=== PATIENT | male | born 1970 | race Two or more races ===

== ENCOUNTER 2019-10-31 08:33 | Observation (INO) | payer SELFPAY ==
[2019-10-31] VITALS (25 sets, daily range): BP systolic 114–163; BP diastolic 68–105; PULSE 54–72; RESP 13–22; TEMP 36.5–36.9; O2SAT 93–99; BMI 36.6; BMI 39.1
--- NOTE | 2019-10-31 | IR_ITS ---
APPROVED REPORT Patient Location: Inpatient PROCEDURES Left heart catheterization Left ventriculogram Selective coronary angiogram INDICATION Acute coronary syndrome, Dynamic EKG changes Informed consent was obtained prior to the procedure. COMPLICATIONS NONE Estimated Blood Loss: LESS THAN 10 ML TECHNIQUE One percent lidocaine used to anesthetize the right anterior aspect of the wrist. The right radial artery was accessed via the Seldinger technique. A 6 Austrian sheath was placed in the right radial artery. 2.5 mg of verapamil, 800 mcg of nitroglycerin, 1mg Lidocaine and 5000 U Heparin were given through the arterial sheath. The trap catheter was also used to perform left heart catheterization, left ventriculogram and selective coronary angiogram. At the end of the procedure the sheath was removed good hemostasis was achieved using Traclet band, patient was transferred to the postop holding area in stable condition. ANGIOGRAPHIC RESULTS The left main artery Normal The left anterior descending artery Is proximally normal and has mid vessel 10 to 20% stenoses with very distal 30 to 40% stenoses The circumflex artery Is a large dominant vessel and has a 30% stenosis in the large terminal obtuse marginal artery The right coronary artery Is a small nondominant vessel and has 50% stenoses and a 1 mm distal segment The DESAI ventriculogram reveals Normal 65% The left ventricular end-diastolic pressure 20 mmHg IMPRESSION Mild to moderate [id number] coronary disease as described above Normal ejection fraction Elevated LVEDP PLAN 1. Standard therapy for ischemic heart disease 2. Aspirin 81 daily 3. Statin therapy if possible 4. Medical management Electronically signed by : Marlon Daley, 10/31/2019 12:51:43
--- NOTE | 2019-10-31 08:33 | ECG_ITS ---
APPROVED REPORT Exam: Resting ECG HR:71 bpm ECG Measurements Heart Rate 71 AXES NV 164 P 56 QRSd 94 QRS 69 QT 386 T 8 QTc 419 <Conclusion> Normal sinus rhythm Nonspecific T wave abnormality Abnormal ECG Electronically signed by : Cb Valencia, 11/04/2019 17:16:20
--- NOTE | 2019-10-31 08:35 | XR_ITS ---
PROCEDURE: XR CHEST 2V CLINICAL HISTORY: Chest Pain COMPARISON: No exams were available for comparison FINDINGS: The cardiomediastinal silhouette and pulmonary vascularity are within normal limits. The lungs are clear without infiltrates, suspicious nodules, or pleural effusions. No acute bony abnormalities. IMPRESSION: No acute findings. Dictated by: Florentino Mcdonald MD 10/31/2019 09:01 Electronically signed by Florentino Mcdonald MD in [place] 10/31/2019 09:01
--- NOTE | 2019-10-31 08:42 | PC.NURSE ---
Pt to rad
--- NOTE | 2019-10-31 08:43 | PC.NURSE ---
MD at bedside upon pt's arrival to ED.
--- NOTE | 2019-10-31 08:50 | PC.NURSE ---
Pt returned from rad.
--- NOTE | 2019-10-31 09:01 | PC.NURSE ---
Reassessed pt pain after administration of GI contact, pt expressed his pain is better
--- NOTE | 2019-10-31 09:03 | PC.NURSE ---
Pt speaks limited amount of luxembourgish, family member at bedside translating for pt, refused official hospital head orthopedic team physician
--- NOTE | 2019-10-31 09:17 | PC.NURSE ---
Called lab for update on lab results
[2019-10-31 09:24] LABS: Basophils # 0.1 K/mm3 (0-0.2); Eosinophils # 0.4 K/mm3 (0.0-0.4); Eosinophils % 6.7 % (0.1-12.0); Hematocrit 49.2 % (42.0-52.0); Hemoglobin 16.8 g/dL (14.1-18.0); Lymphocytes # 2.4 K/mm3 (0.7-4.5); Lymphocytes % 37.3 % (10-50); Mean Corpuscular HGB Conc 34.2 g/dL (31.8-35.4); Mean Corpuscular Hemoglobin 30.2 pg (27.0-31.2); Mean Corpuscular Volume 88.3 fl (80-94); Mean Platelet Volume 8.3 fl (7.4-10.4); Monocytes # 0.5 K/mm3 (0.1-1.0); Neutrophils # 3.1 K/mm3 (1.8-7.8); Platelet Count 199 K/mm3 (142-424); Red Blood Count 5.58 M/mm3 (4.60-6.20); Red Cell Distribution Width 14.2 % (11.5-17.5); White Blood Count 6.4 K/mm3 (4.8-10.8)
[2019-10-31 09:30] LABS: Chloride 105 mmol/L (98-107); Sodium 137 mmol/L (136-145)
[2019-10-31 09:32] LABS: Amylase 93 U/L (30-110); Blood Urea Nitrogen 12 mg/dl (9-20); Creatinine Clearance Estimated 186 mL/min (50-200); Estimated Glomerular Filt Rate 121 ml/min (>60); GFR (African American) 147 ML/MIN (>60)
[2019-10-31 09:33] LABS: Carbon Dioxide 29 mmol/L (22.0-30.0); Lipase 177 U/L (23-300)
[2019-10-31 09:39] LABS: Calcium 9.1 mg/dl (8.4-10.2)
[2019-10-31 09:46] LABS: Troponin I < 0.01 ng/ml (0.00-0.034)
--- NOTE | 2019-10-31 09:51 | PC.NURSE ---
Rhythm change noted to hall monitor, notified stated to get repeat EKG and draw another troponin for this time.
--- NOTE | 2019-10-31 09:53 | ECG_ITS ---
APPROVED REPORT Exam: Resting ECG HR:55 bpm ECG Measurements Heart Rate 55 AXES NE 174 P 25 QRSd 104 QRS 49 QT 418 T -52 QTc 399 <Conclusion> Sinus bradycardia Possible Inferior infarct, age undetermined T wave abnormality, consider lateral ischemia Abnormal ECG Electronically signed by : Cb Valencia, 11/04/2019 17:16:12
[2019-10-31 09:55] LABS: Glucose 114 mg/dl (74-100)
--- NOTE | 2019-10-31 09:57 | PC.NURSE ---
Pt states his pain is at a 4, MD notified
--- NOTE | 2019-10-31 09:58 | PC.NURSE ---
Lab aware of new orders.
--- NOTE | 2019-10-31 10:17 | HMH.EDCP ---
ED Disposition Clinical Impression: Chest pain Disposition: Admitted as Observation Condition on Discharge: Good - Critical Care Critical Care Time: No Attestation: On 10/31/19, the high probability of a clinically significant, sudden or life threatening deterioration of the following system(s) required my full and direct attention, intervention and personal management. The time I documented below is in addition to time spent performing reported procedures but includes the following listed in this critical care notation. Medical Decision Making - Medical Records Medical records reviewed: Yes: I reviewed the patient's medical records. - Gilberto Inquiry Pt receiving controlled substance: No Vital Signs: 10/31/19 08:34 10/31/19 09:05 10/31/19 09:36 Temperature 98.5 F Temperature Source Oral Pulse Rate [Right] 70 64 57 L Respiratory Rate 22 13 Blood Pressure [Right Arm] 145/95 H 151/95 H 130/75 Blood Pressure Mean [Right Arm] 111 113 93 Blood Pressure Source [Right Arm] Automatic Cuff Blood Pressure Position [Right Arm] Sitting 02 Sat by Pulse Oximetry 98 96 93 L Oxygen Delivery Method Room Air 10/31/19 09:58 10/31/19 10:02 10/31/19 10:55 Temperature Temperature Source Pulse Rate [Right] 64 61 61 Respiratory Rate 20 Blood Pressure [Right Arm] 131/90 124/68 149/98 H Blood Pressure Mean [Right Arm] 103 86 115 Blood Pressure Source [Right Arm] Automatic Cuff Automatic Cuff Blood Pressure Position [Right Arm] Sitting Sitting 02 Sat by Pulse Oximetry 93 L 94 L 97 Oxygen Delivery Method Room Air Room Air Room Air 10/31/19 11:07 Temperature Temperature Source Pulse Rate [Right] 66 Respiratory Rate Blood Pressure [Right Arm] 163/105 H Blood Pressure Mean [Right Arm] 124 Blood Pressure Source [Right Arm] Automatic Cuff Blood Pressure Position [Right Arm] Sitting 02 Sat by Pulse Oximetry 97 Oxygen Delivery Method Room Air - Lab Data Lab results reviewed: Yes: I reviewed the patient's lab results. Lab Results 10/31/19 08:35: WBC 6.4, RBC 5.58, Hgb 16.8, Hct 49.2, MCV 88.3, MCH 30.2, MCHC 34.2, RDW 14.2, Plt Count 199, MPV 8.3, Neut % (Auto) 48.0, Lymph % (Auto) 37.3, [place] % (Auto) 7.0, Eos % (Auto) 6.7, Baso % (Auto) 1.0, Neut # (Auto) 3.1, Lymph # (Auto) 2.4, [place] # (Auto) 0.5, Eos # (Auto) 0.4, Baso # (Auto) 0.1 10/31/19 08:35: Sodium 137, Potassium 4.0, Chloride 105, Carbon Dioxide 29, Anion Gap 7.0, BUN 12, Creatinine 0.70, Estimated Creat Clear 186, Estimated GFR 121, Est GFR ( Amer) 147, Glucose 114 H, Calcium 9.1, Troponin I < 0.01, Amylase 93 10/31/19 08:35: Lipase 177 10/31/19 09:56: Troponin I < 0.01 Result diagrams: 10/31/19 08:35 10/31/19 08:35 Orders (Tests/Meds): ED MEDICATIONS Generic Name Dose Route Start Last Admin Trade Name Freq PRN Reason Stop Dose Admin Fentanyl Citrate 25 mcg 10/31/19 10:46 Fentanyl 250mcg/5ml Vial IV 11/01/19 10:46 Q3MINP PRN Moderate to Severe Pain Fentanyl Citrate 50 mcg 10/31/19 10:46 Fentanyl 250mcg/5ml Vial IV 11/01/19 10:46 Q3MINP PRN Moderate to Severe Pain Flumazenil 0.2 mg 10/31/19 10:46 Romazicon 0.1mg/Ml 5ml Vial IV 10/31/19 23:00 NEEDED PRN Sedation Nitroglycerin/Dextrose 250 mls @ 1.5 mls/hr 10/31/19 10:45 10/31/19 10:48 Nitroglycerin 50mg/250ml D5w IV 11/30/19 10:44 5 mcg/min .Q24H JAMIL 1.5 mls/hr Administration Protocol 5 MCG/MIN Midazolam HCl 1 mg 10/31/19 10:46 Midazolam 2mg/2ml Vial IV 11/01/19 10:46 Q3MINP PRN Sedation Midazolam HCl 1 mg 10/31/19 10:46 Midazolam 1mg/Ml 5ml Vial IV 11/01/19 10:46 Q3MINP PRN Sedation Naloxone HCl 0.4 mg 10/31/19 10:46 Narcan 0.4mg/Ml Vial IV 11/01/19 10:46 Q5MINP PRN Decreased Respirations Discontinued Medications Generic Name Dose Route Start Last Admin Trade Name Freq PRN Reason Stop Dose Admin Aspirin 324 mg 10/31/19 08:39
--- NOTE | 2019-10-31 10:19 | PC.NURSE ---
Demetri Harris at bedside
[2019-10-31 10:28] LABS: Troponin I < 0.01 ng/ml (0.00-0.034)
--- NOTE | 2019-10-31 10:31 | HMH.CNCARD ---
History of Present Illness Consult date: 10/31/19 Requesting physician: Duane Castillo Consult reason: chest pain Chief complaint: chest pain Additional Medical History:: 1. Hypertension 2. Questionable family history of heart disease 3. History of reflux History of present illness: A pleasant 48-year-old gentleman presents the ED with acute onset of left-sided chest pain. Patient is a male and does not speak very good U[place]ayan he does have an analytics specialist in the room. Patient states that this pain started about 1 hour prior to arrival here in the ED he is classify the pain as a sharp and pressure-like sensation on the left sternum he also stated that radiates to the neck and jaw and also to the back. He states that presently the pain is better than it did when it first happened. He originally rated his pain when it first happened at 8 out of 10 presently it is 3 out of 10. Patient states he has hypertension and also hyperlipidemia. No known previous cardiac events. Patient states that activity makes his pain worse and resting makes this pain better.Patient denies any recent cough or shortness of breath, patient denies any sore throat or headache, patient denies any loss of taste or smell, patient denies any malaise or fatigue, patient denies any abdominal pain nausea vomiting or diarrhea. After about 60 minutes here in the ED patient did have another episode of chest pain and also had monitor changes in his heart rhythm. EKG at that time was performed immediately and also a new set of cardiac markers were drawn as well. I also consulted cardiology and Demetri Harris is here examining the patient. The above per Dr. Castillo Patient confirmed events as noted above. Through the float tender patient relates complete relief of chest pain after his GI cocktail. He was given Zofran due to some nausea. Thereafter his pain did recur at which time as noted above the second set of enzymes and second EKG were obtained which did show evidence of ST depression laterally. Patient was reportedly having some chest discomfort prior to my arrival but at this time the patient denies chest pain. Patient is a non-smoker and nondiabetic. He does have hypertension. No prior history of hyperlipidemia. There is a questionable history of heart disease in his aunt who was a diabetic. Patient does relate an episode of chest discomfort about 10 years ago for which he was seen at [facility] but from what I can tell there were no follow-up procedures performed. [facility] History *Have you ever received a pneumonia vaccine?: No *Have you received a flu vaccine this season?: No - *Social History Alcohol Intake: never *Occupational Status:: employed *Travel in the last 8 weeks: None Family Hx:: Coronary Artery Disease Meds Allergies Allergy/AdvReac Type Severity Reaction Status Date / Time No Known Allergies Allergy Verified 10/31/19 08:39 Review of Systems - Review of Systems Review of systems:: pertinent systems reviewed and negative unless documented below - *Cardiovascular Reports chest pain, Reports shortness of breath with activity - *Respiratory Reports shortness of breath with activity - *Gastrointestinal Reports nausea, Denies vomiting - *Genitourinary Denies blood in urine - *Musculoskeletal Denies joint pain, Denies back pain - *Neurologic Denies headache(s), Denies fainting Exam Vital signs and Labs for Last 24 Hours: Temp Pulse Resp BP Pulse Ox 98.5 F 61 20 124/68 94 L 10/31/19 08:34 10/31/19 10:02 10/31/19 09:58 10/31/19 10:02 10/31/19 10:02 Laboratory Results - last 24 hr 10/31/19 08:35: WBC 6.4, RBC 5.58, Hgb 16.8, Hct 49.2, MCV 88.3, MCH 30.2, MCHC 34.2, RDW 14.2, Plt Count 199, MPV 8.3, Neut % (Auto) 48.0, Lymph % (Auto) 37.3, [place] % (Auto) 7.0, Eos % (Auto) 6.7, Baso % (Auto) 1.0, Neut # (Auto) 3.1, Lymph # (Auto) 2.4, [place] # (Auto) 0.5, Eos # (Auto) 0.4, Baso # (Auto) 0.1 10/31/19 08:35: S
--- NOTE | 2019-10-31 10:33 | PC.NURSE ---
Per Demetri Harris pt will be going to hot plate plywood press laborer shortly. Explained to pt through his family member that he will be prepped and shaved for his procedure.
--- NOTE | 2019-10-31 10:39 | PC.NURSE ---
pt up to restroom
--- NOTE | 2019-10-31 10:47 | PC.NURSE ---
Pt to go to pathology laboratory aide but will be admitted afterwards. Pt to be admitted to room 217
--- NOTE | 2019-10-31 10:55 | PC.NURSE ---
A Josep RN using Ipad furnace clerk at this time to explain procedure and to get consent for cath
--- NOTE | 2019-10-31 11:16 | PC.NURSE ---
Pt states his pain is at a 6, nitro gtt turned up to 10
--- NOTE | 2019-10-31 11:22 | PC.NURSE ---
Spoke with Helen via the seam steamer ipad with NAOMI Cardenas at bedside during obtaining consent. Pt consent obtained for cardiac cath with possible cardiac interventions.
--- NOTE | 2019-10-31 11:30 | PC.NURSE ---
Cathlab here to transport pt, report given to Mary SALGADO from cathlab.
--- NOTE | 2019-10-31 13:52 | HMH.PHAVTE ---
[facility] Pharmacy VTE Monitoring - Patient Demographics Admission date: 10/31/19 Report Date: 10/31/19 Time: 13:52 Allergies/Adverse Reactions: Patient Allergies No Known Allergies Allergy (Verified 10/31/19 08:39) Height: 1.65 m Weight: 106.594 kg Patient Problems: Current Active Problems Chest pain (Acute) Acute coronary syndrome (Acute) History of hypertension (Acute) Obesity (Acute) - VTE Risk Labs: VTE Related Lab Results Hgb 16.8 g/dL (14.1-18.0) 10/31/19 08:35 Hct 49.2 % (42.0-52.0) 10/31/19 08:35 Plt Count 199 K/mm3 (142-424) 10/31/19 08:35 BUN 12 mg/dl (9-20) 10/31/19 08:35 Creatinine 0.70 mg/dl (0.66-1.25) 10/31/19 08:35 Estimated Creat Clear 186 mL/min (50-200) 10/31/19 08:35 Was VTE Risk Assessment Performed: Yes VTE Score: 2 VTE Risk Level: Very Low Risk Clinical Trial Participant: No - Prophylaxis VTE Prophylaxis Ordered?: Yes Types of VTE Prophylaxis: TEDS Knee High
--- NOTE | 2019-10-31 17:53 | HMH.HP ---
*Admission Date: 10/31/19 *Chief complaint: chest pain *History of present illness: A pleasant 48-year-old gentleman presents the ED with acute onset of left-sided chest pain. Patient is a male and does not speak very good Samoan he does have an escrow closer in the room. Patient states that this pain started about 1 hour prior to arrival here in the ED he is classify the pain as a sharp and pressure-like sensation on the left sternum he also stated that radiates to the neck and jaw and also to the back. He states that presently the pain is better than it did when it first happened. He originally rated his pain when it first happened at 8 out of 10 presently it is 3 out of 10. Patient states he has hypertension and also hyperlipidemia. No known previous cardiac events. Patient states that activity makes his pain worse and resting makes this pain better.Patient denies any recent cough or shortness of breath, patient denies any sore throat or headache, patient denies any loss of taste or smell, patient denies any malaise or fatigue, patient denies any abdominal pain nausea vomiting or diarrhea. After about 60 minutes here in the ED patient did have another episode of chest pain and also had monitor changes in his heart rhythm. EKG at that time was performed immediately and also a new set of cardiac markers were drawn as well [facility] History Medical History: Reports:: Hypertension Denies:: Diabetes Mellitus Type 1, Diabetes Mellitus Type 2 *Have you ever received a pneumonia vaccine?: No *Have you received a flu vaccine this season?: No - *Social History Smoking Status: Never smoker Alcohol Intake: never *Occupational Status:: employed Housing: other Household Members: friend(s) *Travel in the last 8 weeks: None Family Hx:: Coronary Artery Disease Review of Systems - *Neurologic Denies headache(s), Denies fainting Meds Home Medications Medication Instructions Recorded Confirmed Type Lisinopril/Hydrochlorothiazide 1 tab PO DAILY 10/31/19 10/31/19 History [Lisinopril-Hctz 20-12.5 mg Tab] Allergies Allergy/AdvReac Type Severity Reaction Status Date / Time No Known Allergies Allergy Verified 10/31/19 08:39 Exam Vital signs and Labs for Last 24 Hours: Temp Pulse Resp BP Pulse Ox 98.2 F 60 16 129/82 98 10/31/19 15:15 10/31/19 16:00 07/02/20 15:15 10/31/19 15:15 10/31/19 15:15 Laboratory Results - last 24 hr 10/31/19 08:35: WBC 6.4, RBC 5.58, Hgb 16.8, Hct 49.2, MCV 88.3, MCH 30.2, MCHC 34.2, RDW 14.2, Plt Count 199, MPV 8.3, Neut % (Auto) 48.0, Lymph % (Auto) 37.3, [place] % (Auto) 7.0, Eos % (Auto) 6.7, Baso % (Auto) 1.0, Neut # (Auto) 3.1, Lymph # (Auto) 2.4, [place] # (Auto) 0.5, Eos # (Auto) 0.4, Baso # (Auto) 0.1 10/31/19 08:35: Sodium 137, Potassium 4.0, Chloride 105, Carbon Dioxide 29, Anion Gap 7.0, BUN 12, Creatinine 0.70, Estimated Creat Clear 186, Estimated GFR 121, Est GFR ( Amer) 147, Glucose 114 H, Calcium 9.1, Troponin I < 0.01, Amylase 93 10/31/19 08:35: Lipase 177 10/31/19 09:56: Troponin I < 0.01 I & O for Last 24 hours: Intake & Output 10/28/19 10/29/19 10/30/19 10/31/19 23:59 23:59 23:59 23:59 Intake Total 1580 / 1580 Balance 1580 / 1580 Weight 235 lb Assessment and Plan (1) Chest pain Current visit: Yes Status: Acute Category: Medical Code(s): R07.9 - Chest pain, unspecified (2) Acute coronary syndrome Current visit: Yes Status: Acute Category: Medical Code(s): I24.9 - Acute ischemic heart disease, unspecified (3) History of hypertension Current visit: Yes Status: Acute Category: Medical Code(s): Z86.79 - Personal history of other diseases of the circulatory system (4) Obesity Current visit: Yes Status: Acute Category: Medical Code(s): E66.9 - Obesity, unspecified
--- NOTE | 2019-10-31 18:00 | HMH.HPDC ---
General - General Admission date:: 10/31/19 Discharge date: 10/31/19 *Admission Date: 10/31/19 *History of present illness: A pleasant 48-year-old gentleman presents the ED with acute onset of left-sided chest pain. Patient is a male and does not speak very good Yoruba he does have an certified court/medical interpreter in the room. Patient states that this pain started about 1 hour prior to arrival here in the ED he is classify the pain as a sharp and pressure-like sensation on the left sternum he also stated that radiates to the neck and jaw and also to the back. He states that presently the pain is better than it did when it first happened. He originally rated his pain when it first happened at 8 out of 10 presently it is 3 out of 10. Patient states he has hypertension and also hyperlipidemia. No known previous cardiac events. Patient states that activity makes his pain worse and resting makes this pain better.Patient denies any recent cough or shortness of breath, patient denies any sore throat or headache, patient denies any loss of taste or smell, patient denies any malaise or fatigue, patient denies any abdominal pain nausea vomiting or diarrhea. After about 60 minutes here in the ED patient did have another episode of chest pain and also had monitor changes in his heart rhythm. EKG at that time was performed immediately and also a new set of cardiac markers were drawn as well Patient was seen in consult with cardiology and taken to the Mash Tub Cooker Operator. Addendum entered and electronically signed by RONNA Adam 10/31/19 12:59: LHC showed only mild to moderate CAD of all 3 vessels. Recommend medical therapy. Add ASA 81 mg daily and atorvastatin 40 mg daily. Add PPI (protonix 40 mg daily) for possible GERD. OK for discharge home later today. Follow up in 1 wk-2 wks Patient is resting comfortably. He is in the room with his hospital recruiter. He denies active chest pain or dyspnea. He was casted through a right radial access, the access site is okay. His heart has a regular S1-S2 at a controlled rate. His lungs are clear. His abdomen is benign. His calves are nontender with no asymmetry. [facility] History Medical History: Reports:: Hypertension Denies:: Diabetes Mellitus Type 1, Diabetes Mellitus Type 2 *Have you ever received a pneumonia vaccine?: No *Have you received a flu vaccine this season?: No - *Social History Smoking Status: Never smoker Alcohol Intake: never *Occupational Status:: employed Housing: other Household Members: friend(s) *Travel in the last 8 weeks: None Family Hx:: Coronary Artery Disease Review of Systems - *Neurologic Denies headache(s), Denies fainting Exam Vital signs and Labs for Last 24 Hours: Temp Pulse Resp BP Pulse Ox 98.2 F 60 16 129/82 98 10/31/19 15:15 10/31/19 16:00 10/31/19 15:15 10/31/19 15:15 10/31/19 15:15 Laboratory Results - last 24 hr 10/31/19 08:35: WBC 6.4, RBC 5.58, Hgb 16.8, Hct 49.2, MCV 88.3, MCH 30.2, MCHC 34.2, RDW 14.2, Plt Count 199, MPV 8.3, Neut % (Auto) 48.0, Lymph % (Auto) 37.3, [place] % (Auto) 7.0, Eos % (Auto) 6.7, Baso % (Auto) 1.0, Neut # (Auto) 3.1, Lymph # (Auto) 2.4, [place] # (Auto) 0.5, Eos # (Auto) 0.4, Baso # (Auto) 0.1 10/31/19 08:35: Sodium 137, Potassium 4.0, Chloride 105, Carbon Dioxide 29, Anion Gap 7.0, BUN 12, Creatinine 0.70, Estimated Creat Clear 186, Estimated GFR 121, Est GFR ( Amer) 147, Glucose 114 H, Calcium 9.1, Troponin I < 0.01, Amylase 93 10/31/19 08:35: Lipase 177 10/31/19 09:56: Troponin I < 0.01 I & O for Last 24 hours: Intake & Output 10/28/19 10/29/19 10/30/19 10/31/19 23:59 23:59 23:59 23:59 Intake Total 1580 / 1580 Balance 1580 / 1580 Weight 235 lb - *Routine HEENT Exam Head: Present: normocephalic, atraumatic ENT: Present: mucous membranes moist - Routine Chest/Breast/Axilla Exam Chest wall: Absent: tenderness - *Routine Respiratory Exam Present: CTA bilaterally. Absent: accessory muscle use,
== END 2019-10-31 18:57 | disposition home or self-care (01) ==
LOC: ER 10:49 → CATHLAB 10:50 → 2ND 13:09
PROVIDERS: Internal Medicine; Admitting Provider Emergency Medicine; Emergency Provider Family Medicine; Visit Provider Emergency Medicine
DX: I25.10 Atherosclerotic heart disease of native coronary artery without angina pectoris (principal); R07.9 Chest pain, unspecified; I10 Essential (primary) hypertension; E78.5 Hyperlipidemia, unspecified
CPT/HCPCS: 71046; 80048; 82150; 83690; 84484; 85025; 93005; 93458; 96365; 96367; 96375; 99152; 99285; C1725; C1769; G0378; J1644; J2405; Q9967